=== PATIENT | female | born 1995 | race Caucasian/White ===

== ENCOUNTER → 2017-08-19 | Outpatient (CLI) | payer OTHER ==
--- NOTE | 2017-08-19 13:21 | DIAGNOSTIC IMAGING REPORT ---
RIGHT FIRST TOE 3 VIEWS CLINICAL HISTORY: First toe pain. Crushing injury. FINDINGS: 3 views of the right first toe are obtained. No prior studies are available for comparison at the time of dictation. The skeletal structures are well mineralized. No fracture is seen. The first metatarsophalangeal and interphalangeal joints are well-maintained. The overlying soft tissues are within normal limits. IMPRESSION: No acute bony abnormality is identified in the right first toe. Electronically signed by: Dayne Kelly M.D. 08/19/2017 1:20 PM Dictated Date/Time: 08/19/2017 1:19 PM
== END | disposition home or self-care (01) ==
LOC: C.RAD1850 12:58
PROVIDERS: ATTEND Emergency Medicine
DX: M79.674 Pain in right toe(s) (principal)